=== PATIENT | female | born 1945 | race American Indian/Alaskan Native ===

== ENCOUNTER 2017-03-03 16:31 | Emergency (ER) | payer MEDICARE, OTHER ==
[2017-03-03 16:48] VITALS: BP 141/92
--- NOTE | 2017-03-03 17:27 | EDM.PDOC ---
ED HPI GENERAL MEDICAL PROBLEM - General Chief Complaint: Cardiovascular Problem Stated Complaint: HIGH POTASSIUM LEVELS Time Seen by Provider: 03/03/17 16:43 Source of Information: Reports: Patient History Limitations: Reports: No Limitations - History of Present Illness INITIAL COMMENTS - FREE TEXT/NARRATIVE: The patient presents from [facility] for high potassium. Her sister recently was diagnosed with A-fib. The patient went to get a physical. Her EKG showed a NSR with no acute changes. Her K came back elevated at 6.6. The rest of her labs looked good. Her creatinine was normal. Her CBC looked good. She has no symptoms such as fever, chills, cough, congestion, chest pain, palpitations, abdominal pain, shortness of breath, nausea or vomiting. She has not had trouble with her electrolytes before. Onset: Unknown/Unsure Improves with: Reports: None Worsens with: Reports: None Context: Reports: Activity (She went in to be evaluated because her twin sister was recently diagnosed with A-fib) Associated Symptoms: Reports: No Other Symptoms - Related Data Allergies Allergy/AdvReac Type Severity Reaction Status Date / Time amoxicillin [From Augmentin] Allergy Cannot Verified 03/03/17 16:45 Remember bupropion [From Wellbutrin] Allergy Cannot Verified 03/03/17 16:45 Remember clavulanic acid Allergy Cannot Verified 03/03/17 16:45 [From Augmentin] Remember diclofenac Allergy Cannot Verified 03/03/17 16:45 Remember fluconazole [From Diflucan] Allergy Cannot Verified 03/03/17 16:45 Remember indomethacin [From Indocin] Allergy Cannot Verified 03/03/17 16:45 Remember metronidazole [From Flagyl] Allergy Cannot Verified 03/03/17 16:45 Remember NSAIDS (Non-Steroidal Allergy Cannot Verified 03/03/17 16:45 Anti-Inflamma Remember Sulfa (Sulfonamide Allergy Hives Verified 03/03/17 16:45 Antibiotics) Home Meds: Home Meds Alendronate [Fosamax] 70 mg PO WEEKLY 03/03/17 [History] Aspirin [Halfprin] 81 mg PO DAILY 03/03/17 [History] Calcium Carbonate [Oyster Shell Calcium] 500 mg PO BID 03/03/17 [History] FLUoxetine [PROzac] 10 mg PO ONETIME 03/03/17 [History] Fish Oil/[place]-3 Fatty Acids [Fish Oil 1,000 MG] 1 gram PO DAILY 03/03/17 [ History] Hydrochlorothiazide 12.5 mg PO DAILY 03/03/17 [History] Lisinopril 10 mg PO DAILY 03/03/17 [History] Past Medical History Cardiovascular History: Reports: Afib Social & Family History - Tobacco Use Smoking Status *Q: Current Every Day Smoker Years of Tobacco use: 38 Packs/Tins Daily: 0.3 - Recreational Drug Use Recreational Drug Use: No ED ROS GENERAL - Review of Systems Review Of Systems: See Below Constitutional: Reports: No Symptoms HEENT: Reports: No Symptoms Respiratory: Reports: No Symptoms Cardiovascular: Reports: No Symptoms Endocrine: Reports: No Symptoms GI/Abdominal: Reports: No Symptoms : Reports: No Symptoms Musculoskeletal: Reports: No Symptoms Skin: Reports: No Symptoms Neurological: Reports: No Symptoms ED EXAM, GENERAL - Physical Exam Exam: See Below Exam Limited By: No Limitations General Appearance: Alert, No Apparent Distress Ears: Normal External Exam Nose: Normal Inspection Head: Atraumatic, Normocephalic Neck: Normal Inspection Respiratory/Chest: No Respiratory Distress, Lungs Clear, Normal Breath Sounds Cardiovascular: Regular Rate, Rhythm, No Edema, No Murmur GI/Abdominal: Soft, Non-Tender, No Organomegaly, No Mass Back Exam: Normal Inspection Extremities: Normal Inspection Neurological: Alert, Oriented, No Motor/Sensory Deficits EKG INTERPRETATION EKG Date: 03/03/17 Time: 08:08 Rhythm: NSR Rate (Beats/Min): 86 [place]: Normal P-Wave: Present QRS: Normal ST-T: Normal QT: Normal Course - Vital Signs Last Recorded V/S: Last Vital Signs Temp Pulse 71 03/03/17 16:45 Resp 17 03/03/17 16:45 BP 141/92 H 03/03/17 16:45 Pulse Ox 96 03/03/17 16:45 - Orders/Labs/Meds Orders: Active Orders 24 hr Category Date Time Status Cardiac Monitoring [RC] . DIRECTED Care 03/03/17 16:56 Active Labs: Laboratory Tests 03/03/17 03/03/17 Range/Units 17:04 17:04 WBC 6.95 (3.98-10.04) K/mm3 RBC 4.69 (3.98-5.22) M/mm3 Hgb 14.5 (11.2-15.7) gm/L Hct 43.2 (34.1-44.9) % MCV 92.1 (79.4-94.8) fl MCH 30.9 (25.6-32.2) pg MCHC 33.6 (32.2-35.5) g/dl RDW Std Deviation 44.0 (36.4-46.3) fL Plt Count 297 (182-369) K/mm3 MPV 9.0 L (9.4-12.3) fl Neut % (Auto) 58.0 (34.0-71.1) % Lymph % (Auto) 23.0 (19.3-51.7) % [place] % (Auto) 11.7 (4.7-12.5) % Eos % (Auto) 6.3 H (0.7-5.8) Baso % (Auto) 0.7 (0.1-1.2) % Neut # (Auto) 4.03 (1.56-6.13) K/mm3 Lymph # (Auto) 1.60 (1.18-3.74) K/mm3 [place] # (Auto) 0.81 H (0.24-0.36) K/mm3 Eos # (Auto) 0.44 H (0.04-0.36) K/mm3 Baso # (Auto) 0.05 (0.01-0.08) K/mm3 Sodium 139 (136-145) mEq/L Potassium 3.9 (3.5-5.1) mEq/L Chloride 103 (98-107) mEq/L Carbon Dioxide 26 (21-32) mEq/L Anion Gap 13.9 (5-15) BUN 14 (7-18) mg/dL Creatinine 1.1 H (0.55-1.02) mg/dL Est Cr Clr Drug Dosing 40.51 mL/min Estimated GFR (MDRD) 49 (>60) mL/min BUN/Creatinine Ratio 12.7 L (14-18) Glucose 107 (83-115) mg/dL Calcium 8.7 (8.5-10.1) mg/dL Total Bilirubin 0.2 (0.2-1.0) mg/dL AST 22 (15-37) U/L ALT 28 (14-59) U/L Alkaline Phosphatase 73 (46-116) U/L Troponin I < 0.017 (0.00-0.056) ng/mL Total Protein 6.7 (6.4-8.2) g/dl Albumin 3.5 (3.4-5.0) g/dl Globulin 3.2 gm/dL Albumin/Globulin Ratio 1.1 (1-2) - Re-Assessments/Exams Free Text/Narrative Re-Assessment/Exam: 03/03/17 17:35 I ordered some labs and 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 03/03/17 18:09 Her CBC was negative. Her K was normal at 3.9. Her creatinine was a little elevated at 1.1. Her troponin was negative. She must have had some lysis of the cells when her blood was drawn. Departure - Departure Time of Disposition: 18:10 Disposition: Home, Self-Care 01 Condition: Good Clinical Impression: Electrolyte abnormality Forms: ED Department Discharge Additional Instructions: Follow up with your provider as needed. - My Orders Last 24 Hours: My Active Orders 03/03/17 16:56 Cardiac Monitoring [RC] . DIRECTED - Assessment/Plan Last 24 Hours: My Active Orders 03/03/17 16:56 Cardiac Monitoring [RC] . DIRECTED
== END 2017-03-03 18:15 | disposition home or self-care (01) ==
LOC: JD.ED 16:31
DX: E87.8 Other disorders of electrolyte and fluid balance, not elsewhere classified (principal); F17.210 Nicotine dependence, cigarettes, uncomplicated; I48.91 Unspecified atrial fibrillation; Z79.82 Long term (current) use of aspirin; Z79.899 Other long term (current) drug therapy; Z88.2 Allergy status to sulfonamides; Z88.1 Allergy status to other antibiotic agents; Z88.8 Allergy status to other drugs, medicaments and biological substances
CPT/HCPCS: 36415; 80053; 84484; 85025; 99283; 99285

== ENCOUNTER 2018-04-23 09:59 | Emergency (ER) | payer MEDICARE, OTHER ==
[2018-04-23 10:16] VITALS: BP 132/69
[2018-04-23] MEDS ORDERED: Sodium Chloride 0.9% 10 ML Syringe FLUSH PRN (10:28)
[2018-04-23] MEDS ORDERED: Ondansetron 4 MG/2 ML SDV IVPUSH ONE (10:28)
[2018-04-23] MEDS ORDERED: cefTRIAXone 2 GM in Sodium Chloride 0.9% 100 ML IV ONE (10:29)
[2018-04-23] MEDS ORDERED: Sodium Chloride 0.9% 1,000 ML IV SCH (10:30)
--- NOTE | 2018-04-23 12:51 | EDM.PDOC ---
ED HPI GENERAL MEDICAL PROBLEM - General Chief Complaint: General Stated Complaint: VOMITING/WEAK Time Seen by Provider: 04/23/18 10:12 Source of Information: Reports: Patient History Limitations: Reports: No Limitations - History of Present Illness INITIAL COMMENTS - FREE TEXT/NARRATIVE: The patient presents with palpitations and generalized weakness. She says this has been going on for over a week. She has a history of A-fib in her family and she went to the clinic in [place] and they diagnosed her with a UTI and put her on macrobid. She is still having symptoms. She had an EKG that did not show the A-fib. She has no chest pain or shortness of breath. She is fatigued and has generalized weakness. She has to sit down after walking a short distance. She has no abdominal pain but she does have some nausea but no vomiting. She did not notice any urinary symptoms such as dysuria or hematuria. Onset: Gradual Duration: Week(s): Severity: Moderate Improves with: Reports: None Worsens with: Reports: None Associated Symptoms: Reports: Nausea/Vomiting. Denies: Chest Pain, Fever/Chills , Headaches, Shortness of Breath - Related Data Allergies Allergy/AdvReac Type Severity Reaction Status Date / Time amoxicillin [From Augmentin] Allergy Cannot Verified 04/23/18 10:17 Remember bupropion [From Wellbutrin] Allergy Cannot Verified 04/23/18 10:17 Remember clavulanic acid Allergy Cannot Verified 04/23/18 10:17 [From Augmentin] Remember diclofenac Allergy Cannot Verified 04/23/18 10:17 Remember fluconazole [From Diflucan] Allergy Cannot Verified 04/23/18 10:17 Remember indomethacin [From Indocin] Allergy Cannot Verified 04/23/18 10:17 Remember metronidazole [From Flagyl] Allergy Cannot Verified 04/23/18 10:17 Remember NSAIDS (Non-Steroidal Allergy Cannot Verified 04/23/18 10:17 Anti-Inflamma Remember Sulfa (Sulfonamide Allergy Hives Verified 04/23/18 10:17 Antibiotics) Home Meds: Home Meds Alendronate [Fosamax] 70 mg PO WEEKLY 03/03/17 [History] Aspirin [Halfprin] 81 mg PO DAILY 03/03/17 [History] Calcium Carbonate [Oyster Shell Calcium] 500 mg PO BID 03/03/17 [History] FLUoxetine [PROzac] 10 mg PO DAILY 03/03/17 [History] Fish Oil/[place]-3 Fatty Acids [Fish Oil 1,000 MG] 1 gram PO DAILY 03/03/17 [ History] Lisinopril 10 mg PO DAILY 03/03/17 [History] hydroCHLOROthiazide [Hydrochlorothiazide] 12.5 mg PO DAILY 03/03/17 [History] Ferrous Gluconate [Iron] 236 mg PO BID #60 tablet 04/23/18 [Rx] Nitrofurantoin Macrocrystal [Macrodantin] 100 mg PO BID 04/23/18 [History] Past Medical History HEENT History: Reports: Impaired Vision Cardiovascular History: Reports: Afib, Hypertension Genitourinary History: Reports: UTI, 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: Musculoskeletal History: Reports: Arthritis, Back Pain, Chronic Psychiatric History: Reports: Anxiety, Depression - Past Surgical History GI Surgical History: Reports: Appendectomy Female Surgical History: Reports: Hysterectomy Social & Family History - Tobacco Use Smoking Status *Q: Former Smoker Used Tobacco, but Quit: Yes Month/Year Tobacco Last Used: 36 - Caffeine Use Caffeine Use: Reports: Coffee - Recreational Drug Use Recreational Drug Use: No ED ROS GENERAL - Review of Systems Review Of Systems: See Below Constitutional: Reports: No Symptoms HEENT: Reports: No Symptoms Respiratory: Reports: No Symptoms Cardiovascular: Reports: No Symptoms Endocrine: Reports: No Symptoms GI/Abdominal: Reports: Nausea. Denies: Abdominal Pain, Diarrhea, Vomiting : Reports: No Symptoms Musculoskeletal: Reports: No Symptoms ED EXAM, GENERAL - Physical Exam Exam: See Below Exam Limited By: No Limitations General Appearance: Alert, No Apparent Distress Ears: Normal External Exam Nose: Normal Inspection Head: Atraumatic, Normocephalic Neck: Normal Inspection Respiratory/Chest: No Respiratory Distress, Lungs Clear, Normal Breath Sounds Cardiovascular: Regular Rate, Rhythm, No Edema, No Murmur GI/Abdominal: Soft, Non-Tender, No Organomegaly, No Mass Rectal (Female) Exam: Normal Rectal Tone, Heme + Stool Back Exam: Normal Inspection Extremities: Normal Inspection Neurological: Alert, Oriented, No Motor/Sensory Deficits EKG INTERPRETATION EKG Date: 04/23/18 Time: 10:18 Rhythm: NSR Rate (Beats/Min): 91 [place]: Normal P-Wave: Present QRS: Normal ST-T: Normal QT: Normal EKG Interpretation Comments: PAC Course - Vital Signs Last Recorded V/S: Last Vital Signs Temp 97.3 F 04/23/18 10:07 Pulse 107 H 04/23/18 10:07 Resp 25 H 04/23/18 10:07 BP 132/69 04/23/18 10:07 Pulse Ox 93 L 04/23/18 10:07 - Orders/Labs/Meds Orders: Active Orders 24 hr Category Date Time Status Cardiac Monitoring [RC] . DIRECTED Care 04/23/18 10:28 Active EKG Documentation Completion [RC] STAT Care 04/23/18 10:29 Active Peripheral IV Care [RC] . DIRECTED Care 04/23/18 10:28 Active Chest 1V Frontal [CR] Stat Exams 04/23/18 10:29 Taken Sodium Chloride 0.9% [Normal Saline] 1,000 ml Med 04/23/18 10:30 Active IV .BOLUS Sodium Chloride 0.9% [Saline Flush] Med 04/23/18 10:28 Active 10 ml FLUSH ASDIRECTED PRN ED Antiemetic Medication Reflex [OM.PC] Stat Oth 04/23/18 10:28 Ordered Peripheral IV Insertion Adult [OM.PC] Stat Oth 04/23/18 10:28 Ordered Medication Orders Sodium Chloride (Normal Saline) 1,000 mls @ 1,000 mls/hr IV .BOLUS LINDA Last Admin: 04/23/18 10:40 Dose: 1,000 mls/hr Sodium Chloride (Saline Flush) 10 ml FLUSH ASDIRECTED PRN PRN Reason: Keep Vein Open Last Admin: 04/23/18 10:44 Dose: 10 ml Labs: Laboratory Tests 04/23/18 04/23/18 04/23/18 Range/Units 10:20 10:46 10:46 WBC 9.27 (3.98-10.04) K/mm3 RBC 3.08 L (3.98-5.22) M/mm3 Hgb 9.4 L (11.2-15.7) gm/L Hct 29.1 L (34.1-44.9) % MCV 94.5 (79.4-94.8) fl MCH 30.5 (25.6-32.2) pg MCHC 32.3 (32.2-35.5) g/dl RDW Std Deviation 45.4 (36.4-46.3) fL Plt Count 386 H (182-369) K/mm3 MPV 8.7 L (9.4-12.3) fl Neut % (Auto) 82.8 H (34.0-71.1) % Lymph % (Auto) 9.3 L (19.3-51.7) % [place] % (Auto) 6.8 (4.7-12.5) % Eos % (Auto) 0.4 L (0.7-5.8) Baso % (Auto) 0.3 (0.1-1.2) % Neut # (Auto) 7.67 H (1.56-6.13) K/mm3 Lymph # (Auto) 0.86 L (1.18-3.74) K/mm3 [place] # (Auto) 0.63 H (0.24-0.36) K/mm3 Eos # (Auto) 0.04 (0.04-0.36) K/mm3 Baso # (Auto) 0.03 (0.01-0.08) K/mm3 Manual Slide Review Abnormal smear Sodium 134 L (136-145) mEq/L Potassium 3.6 (3.5-5.1) mEq/L Chloride 101 (98-107) mEq/L Carbon Dioxide 26 (21-32) mEq/L Anion Gap 10.6 (5-15) BUN 19 H (7-18) mg/dL Creatinine 1.1 H (0.55-1.02) mg/dL Est Cr Clr Drug Dosing 39.92 mL/min Estimated GFR (MDRD) 49 (>60) mL/min BUN/Creatinine Ratio 17.3 (14-18) Glucose 125 H (83-115) mg/dL Calcium 8.7 (8.5-10.1) mg/dL Iron (50-170) ug/dL TIBC (100-400) ug/dL % Saturation (20-55) % Transferrin (202-364) mg/dL Total Bilirubin 0.3 (0.2-1.0) mg/dL AST 22 (15-37) U/L ALT 23 (14-59) U/L Alkaline Phosphatase 45 L (46-116) U/L Troponin I < 0.017 (0.00-0.056) ng/mL Total Protein 6.8 (6.4-8.2) g/dl Albumin 3.5 (3.4-5.0) g/dl Globulin 3.3 gm/dL Albumin/Globulin Ratio 1.1 (1-2) TSH 3rd Generation 1.401 (0.358-3.74) uIU/mL Urine Color Yellow (Yellow) Urine Appearance Clear (Clear) Urine pH 7.0 (5.0-8.0) Ur Specific [place] 1.020 (1.005-1.030) Urine Protein Negative (Negative) Urine Glucose (UA) Negative (Negative) Urine Ketones Negative (Negative) Urine Occult Blood Trace-intact H (Negative) Urine Nitrite Negative (Negative) Urine Bilirubin Negative (Negative) Urine Urobilinogen 0.2 (0.2-1.0) Ur Leukocyte Esterase Negative (Negative) Urine RBC 5-10 H (0-5) /hpf Urine WBC 0-5 (0-5) /hpf Ur Epithelial Cells 0-5 (0-5) /hpf Urine Bacteria Rare (FEW) /hpf Urine Mucus Not seen (FEW) /hpf 04/23/18 Range/Units 10:46 WBC (3.98-10.04) K/mm3 RBC (3.98-5.22) M/mm3 Hgb (11.2-15.7) gm/L Hct (34.1-44.9) % MCV (79.4-94.8) fl MCH (25.6-32.2) pg MCHC (32.2-35.5) g/dl RDW Std Deviation (36.4-46.3) fL Plt Count (182-369) K/mm3 MPV (9.4-12.3) fl Neut % (Auto) (34.0-71.1) % Lymph % (Auto) (19.3-51.7) % [place] % (Auto) (4.7-12.5) % Eos % (Auto) (0.7-5.8) Baso % (Auto) (0.1-1.2) % Neut # (Auto) (1.56-6.13) K/mm3 Lymph # (Auto) (1.18-3.74) K/mm3 [place] # (Auto) (0.24-0.36) K/mm3 Eos # (Auto) (0.04-0.36) K/mm3 Baso # (Auto) (0.01-0.08) K/mm3 Manual Slide Review Sodium (136-145) mEq/L Potassium (3.5-5.1) mEq/L Chloride (98-107) mEq/L Carbon Dioxide (21-32) mEq/L Anion Gap (5-15) BUN (7-18) mg/dL Creatinine (0.55-1.02) mg/dL Est Cr Clr Drug Dosing mL/min Estimated GFR (MDRD) (>60) mL/min BUN/Creatinine Ratio (14-18) Glucose (83-115) mg/dL Calcium (8.5-10.1) mg/dL Iron 16 L (50-170) ug/dL TIBC 356 (100-400) ug/dL % Saturation 4 L (20-55) % Transferrin 285 (202-364) mg/dL Total Bilirubin (0.2-1.0) mg/dL AST (15-37) U/L ALT (14-59) U/L Alkaline Phosphatase (46-116) U/L Troponin I (0.00-0.056) ng/mL Total Protein (6.4-8.2) g/dl Albumin (3.4-5.0) g/dl Globulin gm/dL Albumin/Globulin Ratio (1-2) TSH 3rd Generation (0.358-3.74) uIU/mL Urine Color (Yellow) Urine Appearance (Clear) Urine pH (5.0-8.0) Ur Specific [place] (1.005-1.030) Urine Protein (Negative) Urine Glucose (UA) (Negative) Urine Ketones (Negative) Urine Occult Blood (Negative) Urine Nitrite (Negative) Urine Bilirubin (Negative) Urine Urobilinogen (0.2-1.0) Ur Leukocyte Esterase (Negative) Urine RBC (0-5) /hpf Urine WBC (0-5) /hpf Ur Epithelial Cells (0-5) /hpf Urine Bacteria (FEW) /hpf Urine Mucus (FEW) /hpf Meds: Medications Generic Name Dose Route Start Last Admin Trade Name Freq PRN Reason Stop Dose Admin Sodium Chloride 1,000 mls @ 1,000 mls/hr 04/23/18 10:30 04/23/18 10:40 Normal Saline IV 1,000 mls/hr .BOLUS LINDA Administration Sodium Chloride 10 ml 04/23/18 10:28 04/23/18 10:44 Saline Flush FLUSH 10 ml ASDIRECTED PRN Administration Keep Vein Open Discontinued Medications Generic Name Dose Route Start Last Admin Trade Name Cely PRN Reason Stop Dose Admin Ceftriaxone Sodium 2 gm/ 100 mls @ 100 mls/hr 04/23/18 10:29 04/23/18 10:44 Sodium Chloride IV 04/23/18 11:28 100 mls/hr ONETIME ONE Administration Ondansetron HCl 4 mg 04/23/18 10:28 04/23/18 10:40 Zofran IVPUSH 04/23/18 10:29 4 mg ONETIME ONE Administration - Re-Assessments/Exams Free Text/Narrative Re-Assessment/Exam: 04/23/18 12:47 I ordered an IV NS 1L bolus, rocephin 2 grams IV, EKG, and labs. Her EKG shows a NSR with no acute changes. Her Hgb was low at 9.4. The last time she was here it was 14. She says she does not have any black, bloody or tarry stools. She does have a history of colitis and she did not have a colonoscly for awhile. I did a rectal exam and it was guiac positive. I will need to get her on some iron. Her iron is low. I will also have her follow up for a colonoscopy. Her creatinine was a little elevated at 1.1. Her glucose was 125. Her troponin is negative. Her UA shows no UTI. I will have her wear a holter monitor. I feel the palpitations may be from the anemia but I will check for A-fib. Departure - Departure Time of Disposition: 12:55 Disposition: Home, Self-Care 01 Condition: Good Clinical Impression: Palpitations, Low iron Anemia Qualifiers: Anemia type: other cause Other causes of anemia: other cause, not classified Qualified Code(s): D64.89 - Other specified anemias UTI (urinary tract infection) Qualifiers: Urinary tract infection type: site unspecified Hematuria presence: without hematuria Qualified Code(s): N39.0 - Urinary tract infection, site not specified GI bleed Qualifiers: GI bleed type/associated pathology: unspecified gastrointestinal hemorrhage type Qualified Code(s): K92.2 - Gastrointestinal hemorrhage, unspecified - Discharge Information *PRESCRIPTION DRUG MONITORING PROGRAM REVIEWED*: No *COPY OF PRESCRIPTION DRUG MONITORING REPORT IN PATIENT BRIT: No Prescriptions: Ferrous Gluconate [Iron] 236 mg PO BID #60 tablet Referrals: Elana Arriaga NP [Primary Care Provider] - 1 Week Additional Instructions: Take the iron pills 2 times per day. Follow up with your doctor. You will need a colonoscopy. Take your macrobid for the urinary infection until gone. Wear the holter monitor for 48 hours. Please return if you are worse. - My Orders Last 24 Hours: My Active Orders 04/23/18 10:28 Cardiac Monitoring [RC] . DIRECTED Peripheral IV Care [RC] . DIRECTED Sodium Chloride 0.9% [Saline Flush] 10 ml FLUSH ASDIRECTED PRN ED Antiemetic Medication Reflex [OM.PC] Stat Peripheral IV Insertion Adult [OM.PC] Stat 04/23/18 10:29 EKG Documentation Completion [RC] STAT Chest 1V Frontal [CR] Stat 04/23/18 10:30 Sodium Chloride 0.9% [Normal Saline] 1,000 ml IV .BOLUS - Assessment/Plan Last 24 Hours: My Active Orders 04/23/18 10:28 Cardiac Monitoring [RC] . DIRECTED Peripheral IV Care [RC] . DIRECTED Sodium Chloride 0.9% [Saline Flush] 10 ml FLUSH ASDIRECTED PRN ED Antiemetic Medication Reflex [OM.PC] Stat Peripheral IV Insertion Adult [OM.PC] Stat 04/23/18 10:29 EKG Documentation Completion [RC] STAT Chest 1V Frontal [CR] Stat 04/23/18 10:30 Sodium Chloride 0.9% [Normal Saline] 1,000 ml IV .BOLUS
--- NOTE | 2018-04-25 07:13 | CR ---
Chest: Portable view of the chest was obtained. Comparison: No prior chest x-ray. Heart size is normal. Mild tortuosity of the thoracic aorta is seen. Small nodule is noted within the right lung base. Minimal interstitial change is seen within the left lung base either due to scarring or slight atelectasis. Lungs otherwise are clear. Mild scoliosis is noted within the spine. Osteopenia is present. Impression: 1. Small nodule within the right lung base. Uncertain if this represents a granuloma or other etiology. Noncontrast chest CT could be obtained to further evaluate. 2. Slight atelectasis versus scarring within the left base. 3. Other incidental findings. Diagnostic code #3
== END 2018-04-23 13:14 | disposition home or self-care (01) ==
LOC: JD.ED 09:59
DX: K92.2 Gastrointestinal hemorrhage, unspecified (principal); N39.0 Urinary tract infection, site not specified; R00.2 Palpitations; E61.1 Iron deficiency; D64.89 Other specified anemias; I10 Essential (primary) hypertension; I48.91 Unspecified atrial fibrillation; Z87.891 Personal history of nicotine dependence; Z88.2 Allergy status to sulfonamides; Z88.8 Allergy status to other drugs, medicaments and biological substances; Z79.899 Other long term (current) drug therapy
CPT/HCPCS: 36415; 71045; 80053; 81001; 83540; 84443; 84466; 84484; 85025; 93005; 93225; 93226; 96361; 96365; 96375; 99285; J0696; J2405; J7030; J7040; J7050; 93010; 99284-25

== ENCOUNTER 2019-12-22 18:10 | Emergency (ER) | payer MEDICARE, OTHER ==
[2019-12-22 18:20] VITALS: BP 145/99; PULSE 107
--- NOTE | 2019-12-22 18:47 | EDM.PDOC ---
ED HPI GENERAL MEDICAL PROBLEM - General Chief Complaint: Gastrointestinal Problem Stated Complaint: ANAL BLEED Time Seen by Provider: 12/22/19 18:21 Source of Information: Reports: Patient, RN Notes Reviewed History Limitations: Reports: No Limitations - History of Present Illness INITIAL COMMENTS - FREE TEXT/NARRATIVE: Patient is a 74-year-old female who presents to the ED for evaluation of a rectal bleed. Patient notes that she had a colonoscopy on December 18, 2019, done in [place] and everything seemed to be fine afterwards. She states that she had a few polyps removed, but everything else was within normal limits. Patient states however she is developed some bloody stools today. She notes these were dark red blood in nature. She is not been known to have any hemorrhoids. Patient is complaining of increased pressure to her abdomen on the lower portion, she likens this to giving the child type pressure. She states she is having some rectum soreness. She is not having any sort of dizziness lightheadedness, nausea/vomiting/diarrhea. But her stools have been more loose than normal. She denies any other sick-like symptoms, fever/chills, cough/chest pain/shortness of breath. Patient states she was in contact with her surgeon in [place], and they prescribed some medication to [facility] on [address], but the pharmacy did not have this, she is to follow-up with her regular provider in [place] on Wednesday. - Related Data Allergies Allergy/AdvReac Type Severity Reaction Status Date / Time amoxicillin [From Augmentin] Allergy Cannot Verified 04/23/18 10:17 Remember bupropion [From Wellbutrin] Allergy Cannot Verified 04/23/18 10:17 Remember clavulanic acid Allergy Cannot Verified 04/23/18 10:17 [From Augmentin] Remember diclofenac Allergy Cannot Verified 04/23/18 10:17 Remember fluconazole [From Diflucan] Allergy Cannot Verified 04/23/18 10:17 Remember indomethacin [From Indocin] Allergy Cannot Verified 04/23/18 10:17 Remember metronidazole [From Flagyl] Allergy Cannot Verified 04/23/18 10:17 Remember NSAIDS (Non-Steroidal Allergy Cannot Verified 04/23/18 10:17 Anti-Inflamma Remember Sulfa (Sulfonamide Allergy Hives Verified 04/23/18 10:17 Antibiotics) Home Meds: Home Meds Alendronate [Fosamax] 70 mg PO WEEKLY 03/03/17 [History] Aspirin [Halfprin] 81 mg PO DAILY 03/03/17 [History] Calcium Carbonate [Oyster Shell Calcium] 500 mg PO BID 03/03/17 [History] Fish Oil/Verbena-3 Fatty Acids [Fish Oil 1,000 MG] 1 gram PO DAILY 03/03/17 [ History] Lisinopril 10 mg PO DAILY 03/03/17 [History] hydroCHLOROthiazide [Hydrochlorothiazide] 12.5 mg PO DAILY 03/03/17 [History] Ferrous Gluconate [Iron] 236 mg PO BID #60 tablet 04/23/18 [Rx] Past Medical History HEENT History: Reports: Impaired Vision Cardiovascular History: Reports: Afib, Hypertension Genitourinary History: Reports: UTI, Recurrent [employer] History: Reports: Musculoskeletal History: Reports: Arthritis, Back Pain, Chronic Psychiatric History: Reports: Anxiety, Depression - Past Surgical History GI Surgical History: Reports: Appendectomy, Colonoscopy Female Surgical History: Reports: Hysterectomy Social & Family History - Family History Family Medical History: Noncontributory - Tobacco Use Smoking Status *Q: Former Smoker Used Tobacco, but Quit: Yes Month/Year Tobacco Last Used: 1979 - Caffeine Use Caffeine Use: Reports: None ED ROS GENERAL - Review of Systems Review Of Systems: Comprehensive ROS is negative, except as noted in HPI. ED EXAM, GI/ABD - Physical Exam Exam: See Below Exam Limited By: No Limitations General Appearance: Alert, WD/WN, No Apparent Distress Eyes: Bilateral: Normal Appearance Throat/Mouth: Normal Inspection, Normal Lips, Normal Teeth, Normal Gums, Normal Oropharynx, Normal Voice, No Airway Compromise Head: Atraumatic, Normocephalic Neck: Normal Inspection Respiratory/Chest: No Respiratory Distress, Lungs Clear, Normal Breath Sounds, No Accessory Muscle Use, Chest Non-Tender Cardiovascular: Normal Peripheral Pulses, Regular Rate, Rhythm, No Murmur GI/Abdominal Exam: Normal Bowel Sounds, Soft, No Distention, No Mass, Tender ( mild generalized tenderness on low abdomen) Rectal (Female) Exam: Deferred (pt states that she had darker red colored stools , at least 8 today) Extremities: Normal Inspection, Normal Capillary Refill Neurological: Alert, Normal Cognition, No Motor/Sensory Deficits Psychiatric: Normal Affect, Normal Mood Skin Exam: Warm, Dry, Intact, Normal Color, No Rash EKG INTERPRETATION EKG Date: 12/22/19 Time: 19:16 Rhythm: NSR (sinus tachy) Rate (Beats/Min): 103 [place]: Normal P-Wave: Present QRS: Normal ST-T: Normal QT: Normal EKG Interpretation Comments: No obvious ischemia or acute ST changes noted, reviewed by myself and Dr. Graves. Course - Vital Signs Last Recorded V/S: Last Vital Signs Temp 97.5 F 12/22/19 18:17 Pulse 107 H 12/22/19 18:17 Resp 16 12/22/19 18:17 BP 145/99 H 12/22/19 18:17 Pulse Ox 96 12/22/19 18:17 - Orders/Labs/Meds Orders: Active Orders 24 hr Category Date Time Status EKG Documentation Completion [RC] ASDIRECTED Care 12/22/19 19:14 Active Sodium Chloride 0.9% [Saline Flush] Med 12/22/19 19:45 Active 10 ml FLUSH ONETIME PRN EKG 12 Lead [EK] Stat Ther 12/22/19 19:13 Ordered Medication Orders Sodium Chloride (Saline Flush) 10 ml FLUSH ONETIME PRN PRN Reason: KEEP VEIN OPEN Last Admin: 12/22/19 19:58 Dose: 10 ml Labs: Laboratory Tests 12/22/19 12/22/19 Range/Units 18:23 18:23 WBC 7.94 (3.98-10.04) K/mm3 RBC 4.98 (3.98-5.22) M/mm3 Hgb 15.3 D (11.2-15.7) gm/dl Hct 46.6 H (34.1-44.9) % MCV 93.6 (79.4-94.8) fl MCH 30.7 (25.6-32.2) pg MCHC 32.8 (32.2-35.5) g/dl RDW Std Deviation 43.0 (36.4-46.3) fL Plt Count 331 (182-369) K/mm3 MPV 9.1 L (9.4-12.3) fl Neut % (Auto) 54.5 (34.0-71.1) % Lymph % (Auto) 25.8 (19.3-51.7) % [place] % (Auto) 12.5 (4.7-12.5) % Eos % (Auto) 6.0 H (0.7-5.8) Baso % (Auto) 0.6 (0.1-1.2) % Neut # (Auto) 4.32 (1.56-6.13) K/mm3 Lymph # (Auto) 2.05 (1.18-3.74) K/mm3 [place] # (Auto) 0.99 H (0.24-0.36) K/mm3 Eos # (Auto) 0.48 H (0.04-0.36) K/mm3 Baso # (Auto) 0.05 (0.01-0.08) K/mm3 Sodium 141 (136-145) mEq/L Potassium 3.7 (3.5-5.1) mEq/L Chloride 102 (98-107) mEq/L Carbon Dioxide 28 (21-32) mEq/L Anion Gap 14.7 (5-15) BUN 17 (7-18) mg/dL Creatinine 1.1 H (0.55-1.02) mg/dL Est Cr Clr Drug Dosing 38.75 mL/min Estimated GFR (MDRD) 49 (>60) mL/min BUN/Creatinine Ratio 15.5 (14-18) Glucose 107 (83-115) mg/dL Calcium 9.5 (8.5-10.1) mg/dL Total Bilirubin 0.3 (0.2-1.0) mg/dL AST 25 (15-37) U/L ALT 25 (14-59) U/L Alkaline Phosphatase 91 (46-116) U/L Total Protein 7.9 (6.4-8.2) g/dl Albumin 3.6 (3.4-5.0) g/dl Globulin 4.3 gm/dL Albumin/Globulin Ratio 0.8 L (1-2) Meds: Medications Generic Name Dose Route Start Last Admin Trade Name Freq PRN Reason Stop Dose Admin Sodium Chloride 10 ml 12/22/19 19:45 12/22/19 19:58 Saline Flush FLUSH 10 ml ONETIME PRN Administration KEEP VEIN OPEN Discontinued Medications Generic Name Dose Route Start Last Admin Trade Name Freq PRN Reason Stop Dose Admin Diatrizoate Meglum/Diatrizoate Sod 90 ml 12/22/19 19:45 12/22/19 19:58 Gastrografin 37% PO 12/22/19 19:46 90 ml ONETIME ONE Administration Sodium Chloride 1,000 mls @ 999 mls/hr 12/22/19 19:01 12/22/19 19:21 Normal Saline IV 12/22/19 20:01 999 mls/hr ONETIME ONE Administration Iopamidol 100 ml 12/22/19 19:45 12/22/19 19:58 Isovue-300 (61%) IVPUSH 12/22/19 19:46 100 ml ONETIME ONE Administration Ondansetron HCl 4 mg 12/22/19 19:43 12/22/19 19:46 Zofran IVPUSH 12/22/19 19:44 4 mg ONETIME ONE Administration Ondansetron HCl Confirm 12/22/19 19:44 12/22/19 19:47 Zofran Administered 12/22/19 19:45 Not Given Dose 4 mg .ROUTE .[facility] - Re-Assessments/Exams Free Text/Narrative Re-Assessment/Exam: 12/22/19 18:48 Patient presents to the ED for her rectal bleed. Have ordered some labs, and abdomen pelvis CT with IV and oral contrast for further evaluation. 12/22/19 19:22 Labs have returned, do demonstrate to be within normal limits however creatinine is mildly elevated at 1.1. It was made aware to me by nursing staff that they ambulated her to the bathroom and her heart rate shot up into the 150s to 160s range, did order EKG at that time, were not able to catch it on EKG. EKG demonstrates sinus tach with no obvious signs of any sort of ischemic events. Patient is not complaining of any cardiac etiology on initial exam. EKG was reviewed by myself and Dr. Graves. 12/22/19 19:44 Was feeling a little bit nauseous after drinking oral contrast, have ordered 4 mg Zofran for nausea management. Patient was able to eat the names of the doctors she sees in [place], there names are ZION Prado, and Dr. Laron Romero. She has an appointment with Marcela Beckwith on Wednesday. Both of these providers are gastroenterology providers at [facility] in [facility]. 12/22/19 21:15 I was able to talk with [facility], and consult for this patient, and since the patient had her colonoscopy done there, they are requesting that the patient be transferred for follow-up and further evaluation of the lower GI bleed. I did also discuss this case with Dr. anaya, our general surgeon personnel worker and she would agree that the patient would best be served at [facility] as the patient has most of her records there and has established with doctors. Patient is okay with being transferred to [place] for management. Departure - Departure Time of Disposition: 21:16 Disposition: DC/Tfer to Acute Hospital 02 Condition: Good Clinical Impression: Lower GI bleed - Discharge Information *PRESCRIPTION DRUG MONITORING PROGRAM REVIEWED*: No *COPY OF PRESCRIPTION DRUG MONITORING REPORT IN PATIENT BRIT: No Referrals: PCP,Not In Area [Primary Care Provider] - Forms: ED Department Discharge Sepsis Event Note - Evaluation Sepsis Screening Result: No Definite Risk - Focused Exam Vital Signs: Vital Signs Temp Pulse Resp BP Pulse Ox 12/22/19 18:17 97.5 F 107 H 16 145/99 H 96 Date Exam was Performed: 12/22/19 Time Exam was Performed: 21:15 - My Orders Last 24 Hours: My Active Orders 12/22/19 19:45 Sodium Chloride 0.9% [Saline Flush] 10 ml FLUSH ONETIME PRN - Assessment/Plan Last 24 Hours: My Active Orders 12/22/19 19:45 Sodium Chloride 0.9% [Saline Flush] 10 ml FLUSH ONETIME PRN
[2019-12-22] MEDS ORDERED: Sodium Chloride 0.9% 1,000 ML IV ONE ×2 (19:01→21:16)
[2019-12-22] MEDS ORDERED: Ondansetron 4 MG/2 ML SDV IVPUSH ONE (19:43)
[2019-12-22] MEDS ORDERED: Ondansetron 4 MG/2 ML SDV ONE (19:44)
[2019-12-22] MEDS ORDERED: Sodium Chloride 0.9% 10 ML Syringe FLUSH PRN (19:45)
[2019-12-22] MEDS ORDERED: Iopamidol 612 MG/ML 100 ML Bottle IVPUSH ONE (19:45)
[2019-12-22] MEDS ORDERED: Diatrizoate Meglumine/Diatrizoate Sodium 37% 120 ML Bottle PO ONE (19:45)
--- NOTE | 2019-12-22 20:31 | CT ---
CT abdomen and pelvis Technique: Multiple axial sections were obtained from slightly below the dome of the diaphragm inferiorly through the pubic symphysis. Intravenous and oral contrast was utilized. Comparison: Prior noncontrast CT abdomen and pelvis exam of 03/06/18. Findings: Pectus excavatum deformity is noted. Visualized lung bases shows mild fibrosis and scarring. Liver contains no focal parenchymal abnormality. Spleen appears within normal limits. Adrenal glands show no nodule. Kidneys show symmetric contrast enhancement without hydronephrosis or mass. Pancreas appears within normal limits. Gallbladder contains no calcified gallstones. Aorta shows no aneurysm. No retroperitoneal adenopathy is seen. No mesenteric abnormalities are seen. Areas of increased density as well as a small amount of scattered stool seen within the right colon. Difficult to exclude blood as the etiology of this high density fluid. No pelvic mass or adenopathy is seen. No free fluid is seen. No free air is seen. Delayed images shows contrast within the bladder. Appendix not visualized with certainty. Bone window settings were reviewed show scattered degenerative change within the spine most severe at L4-5 and L5-S1. Impression: 1. Stool and increased density fluid within the cecum and right colon, difficult to exclude blood as the etiology for the increased density fluid. Please correlate if previous colonic biopsy was performed on the right side of the colon as the etiology. 2. Other findings believed to be incidental. No other acute abnormality is appreciated. Diagnostic code #3 This report was dictated in MDT
== END 2019-12-22 22:54 ==
LOC: JD.ED 18:10
DX: K92.2 Gastrointestinal hemorrhage, unspecified (principal); I48.91 Unspecified atrial fibrillation; I10 Essential (primary) hypertension; M19.90 Unspecified osteoarthritis, unspecified site; Z88.1 Allergy status to other antibiotic agents; Z88.6 Allergy status to analgesic agent; Z88.2 Allergy status to sulfonamides; Z79.82 Long term (current) use of aspirin; Z79.899 Other long term (current) drug therapy; Z87.891 Personal history of nicotine dependence
CPT/HCPCS: 36415; 74177; 80053; 85025; 93005; 96361; 96374; 99285; J2405; J7030; Q9963; Q9967; 93010